=== PATIENT | male | born 1995 | race Two or more races ===

== ENCOUNTER 2020-12-08 11:01 | Emergency (ER) | payer OTHER ==
[~2020-12-08] VITALS: Ht 193 cm; Wt 81.7 kg
[2020-12-08] MEDS ORDERED: Cyclobenzaprine5 MG PO (14:20)
[2020-12-08] MEDS ORDERED: IBUP400 PO (14:20)
== END 2020-12-08 14:27 | disposition home or self-care (01) ==
LOC: ER 11:01 → EDBD 11:01 → ER 14:27
DX: M54.5 Low back pain (principal); M54.6 Pain in thoracic spine; R20.8 Other disturbances of skin sensation; G89.29 Other chronic pain
CPT/HCPCS: 72040; 72070; 99283-25

== ENCOUNTER 2021-01-09 16:46 | Emergency (ER) | payer OTHER ==
[~2021-01-09] VITALS: Ht 193 cm; Wt 78.9 kg
[~2021-01-09 16:46] MED LIST: Cyclobenzaprine5 MG PO; IBUP400 PO
== END 2021-01-09 17:39 | disposition home or self-care (01) ==
LOC: ER 16:46
DX: Z00.00 Encounter for general adult medical examination without abnormal findings (principal)
CPT/HCPCS: 99281